=== PATIENT | female | born 1955 | race Caucasian/White ===

== ENCOUNTER → 2016-11-29 | Outpatient (CLI) | payer OTHER ==
--- NOTE | 2016-11-29 12:04 | RAD ---
DATE: 11/29/2016 EXAM: DIGITAL SCREEN BILAT W/CAD HISTORY: Screening COMPARISON: 09/07/2014 This study was interpreted with the benefit of Computerized Aided Detection (CAD). FINDINGS: Breast Density: SCATTERED The breast parenchyma shows scattered fibroglandular densities. Breast parenchyma level B. There has not been a significant change in the appearance of the breasts compared to the previous exam IMPRESSION: Benign findings BI-RADS CATEGORY: 2 BENIGN FINDING(S) RECOMMENDED FOLLOW-UP: 12M 12 MONTH FOLLOW-UP PQRS compliance statement: Patient information was entered into a reminder system with a target due date 11/29/2017 for the next mammogram. Mammography is a sensitive method for finding small breast cancers, but it does not detect them all and is not a substitute for careful clinical examination. A negative mammogram does not negate a clinically suspicious finding and should not result in delay in biopsying a clinically suspicious abnormality. "Our facility is accredited by the [employer] Mammography [employer]."
== END | disposition home or self-care (01) ==
LOC: MAMMO 09:46
PROVIDERS: ATTEND Family Medicine
DX: Z12.31 Encounter for screening mammogram for malignant neoplasm of breast (principal)
CPT/HCPCS: G0202; 77067

== ENCOUNTER → 2017-12-03 | Outpatient (CLI) | payer OTHER ==
--- NOTE | 2017-12-03 09:07 | RAD ---
DATE: 12/03/2017 EXAM: MAMMO LUCIO SCREENING BILATERAL HISTORY: Routine screening COMPARISON: 11/29/2016 This study was interpreted with the benefit of Computerized Aided Detection (CAD). Breast Density: SCATTERED The breast parenchyma shows scattered fibroglandular densities. Breast parenchyma level B. FINDINGS: 2-D and 3-D tomosynthesis imaging was performed in CC and MLO projections. There is a 6 mm nodule in the anterior aspect of the right breast at the 11:30 location as best seen on CC lucio image #36. This was not evident on the previous 2-D studies, however, that could be due to obscuration by overlying fibroglandular shadows. No other new or enlarging breast densities are seen. Minimal benign type calcification is present. A Port-A-Cath is projected over the right axillary region on the oblique view. No suspicious microcalcifications are evident. IMPRESSION: Small right breast nodule as described above. Sonographic evaluation is suggested. BI-RADS CATEGORY: 0 INCOMPLETE: NEEDS ADDITIONAL IMAGING EVALUATION AND/OR PRIOR MAMMOGRAMS FOR COMPARISON. RECOMMENDED FOLLOW-UP: ADD ADDITIONAL IMAGING PQRS compliance statement: Patient information was entered into a reminder system with a target due date for the next mammogram. Mammography is a sensitive method for finding small breast cancers, but it does not detect them all and is not a substitute for careful clinical examination. A negative mammogram does not negate a clinically suspicious finding and should not result in delay in biopsying a clinically suspicious abnormality. "Our facility is accredited by the [employer] Mammography [employer]."
== END | disposition home or self-care (01) ==
LOC: MAMMO 07:44
PROVIDERS: ATTEND Family Medicine
DX: Z12.31 Encounter for screening mammogram for malignant neoplasm of breast (principal)
CPT/HCPCS: 77063; 77067

== ENCOUNTER → 2017-12-05 | Outpatient (CLI) | payer OTHER ==
--- NOTE | 2017-12-05 13:36 | RAD ---
Right breast ultrasound, 12/03/2017: History: Suspicious screening study Screening study demonstrated a small smooth nodule at the 11:30 location anteriorly. We performed a targeted ultrasound exam of that region. At the 11:30 location, 2.5 cm in the nipple there is a 3.0 x 2.4 x 1.2 mm hypoechoic nodule. There are low level internal echoes. It is wider than tall. No posterior acoustic enhancement or shadowing is seen. It is probably a complicated cyst. This may correspond to the mammographic abnormality, however that cannot be stated with certainty. No other sonographic abnormality is seen in this region. IMPRESSION: Probably benign right breast nodule as described above. Follow-up right mammography and right breast ultrasound beginning in 6 months is suggested to establish stability. BI-RADS 3-probably benign findings
== END | disposition home or self-care (01) ==
LOC: US 13:03
PROVIDERS: ATTEND Family Medicine
DX: R92.8 Other abnormal and inconclusive findings on diagnostic imaging of breast (principal)
CPT/HCPCS: 76641

== ENCOUNTER → 2018-06-10 | Outpatient (CLI) | payer OTHER ==
--- NOTE | 2018-06-10 09:55 | RAD ---
DATE: 06/10/2018 EXAM: MAMMO LUCIO DIAG RT HISTORY: Follow-up right breast lesion. COMPARISON: Previous mammogram from 12/03/2017 and breast ultrasound from 12/05/2017. This study was interpreted with the benefit of Computerized Aided Detection (CAD). FINDINGS: Breast Density: FATTY The Breast Parenchyma is primarily fatty replaced. Breast parenchyma level density A.. The skin and nipple are within normal limits. Redemonstrated is a 5 mm oval-shaped mass with well-circumscribed margins in the retroareolar region. No suspicious calcifications, spiculated masses or areas of architectural distortion. IMPRESSION: Stable retroareolar oval-shaped mass. Please see ultrasound report on the same day. BI-RADS CATEGORY: 3 PROBABLE BENIGN FINDING(S-SHORT INTERVAL FOLLOW-UP SUGGESTED RECOMMENDED FOLLOW-UP: 6M 6 MONTH FOLLOW-UP. PQRS compliance statement: Patient information was entered into a reminder system with a target due date for the next mammogram. Mammography is a sensitive method for finding small breast cancers, but it does not detect them all and is not a substitute for careful clinical examination. A negative mammogram does not negate a clinically suspicious finding and should not result in delay in biopsying a clinically suspicious abnormality. "Our facility is accredited by the [employer] Mammography Program."
--- NOTE | 2018-06-10 10:21 | RAD ---
Indication: Follow-up of right breast nodule. Technique: Limited ultrasound of the right breast. Comparison: Previous mammogram from 12/22/2017. Findings: Redemonstrated is an oval-shaped hypoechoic nodule approximately 2.5 cm from the nipple at 11:00 position measuring 0.7 x 0.3 x 0.5 cm, previously 0.2 x 0.3 x 0.1 cm. No internal vascularity is seen or posterior shadowing. Impression: Interval increase in size of the right breast nodule on ultrasound but the size is stable on mammogram. The features continues to be that of a benign entity. Most likely minimally complicated cyst. BI-RADS 3: Probably benign. Follow-up ultrasound in 6 months recommended.
== END | disposition home or self-care (01) ==
LOC: MAMMO 07:38
PROVIDERS: ATTEND Family Medicine
DX: N63.11 Unspecified lump in the right breast, upper outer quadrant (principal)
CPT/HCPCS: 76641; 77065; G0279; 77061

== ENCOUNTER → 2018-11-18 | Outpatient (CLI) | payer OTHER ==
--- NOTE | 2018-11-18 17:22 | RAD ---
DATE: 11/18/2018 EXAM: DIGITAL DIAGNOSTIC BILATERAL, BREAST RIGHT HISTORY: Abnormal mammogram and ultrasound COMPARISON: 11/29/2016, 12/03/2017 mammographic exams, 12/05/2017 and 06/10/2018 right breast ultrasound exams This study was interpreted with the benefit of Computerized Aided Detection (CAD). Breast Density: SCATTERED The breast parenchyma shows scattered fibroglandular densities. Breast parenchyma level B. FINDINGS: No suspicious calcifications. No new mass or new distortion. Limited right breast ultrasound exam was performed at the upper breast region. Septated cyst measuring 0.6 cm x 0.7 cm x 0.2 cm tall is again seen without change compared to 06/10/2018 right breast ultrasound exam. IMPRESSION: Six-month follow-up ultrasound exam of the right breast is recommended. Mild a septated cystic structure is unchanged compared 06/10/2017, has increased compared 12/05/2017 noted. BI-RADS CATEGORY: 3 PROBABLY BENIGN FINDING(S)-SHORT INTERVAL FOLLOW-UP SUGGESTED RECOMMENDED FOLLOW-UP: 6M 6 MONTH FOLLOW-UP PQRS compliance statement: Patient information was entered into a reminder system with a target due date in one year for the next mammogram. Mammography is a sensitive method for finding small breast cancers, but it does not detect them all and is not a substitute for careful clinical examination. A negative mammogram does not negate a clinically suspicious finding and should not result in delay in biopsying a clinically suspicious abnormality. "Our facility is accredited by the [employer] Mammography [employer]."
== END | disposition home or self-care (01) ==
LOC: MAMMO 09:06
PROVIDERS: ATTEND Family Medicine
DX: Z12.31 Encounter for screening mammogram for malignant neoplasm of breast (principal); N63.0 Unspecified lump in unspecified breast; R92.8 Other abnormal and inconclusive findings on diagnostic imaging of breast
CPT/HCPCS: 76641; 77066